=== PATIENT | male | born 1965 | race Caucasian/White ===

== ENCOUNTER 2017-03-19 10:00 | Observation (INO) | payer OTHER ==
[~2017-03-19] VITALS: Ht 180.3 cm; Wt 76.3 kg
[~2017-03-19 10:00] MED LIST: CYCLOBENZAPRINE10 MG PO; ENDOCET 5-3251 EACH PO; Flexeril PO; GABAPENTIN600 MG PO; LYRICA75 MG PO; OXYCONTIN15 MG PO; PERCOCET 5/31 TABLET; TRAZODONE HCL50 MG PO
[2017-03-19 12:51] LABS: EOSINOPHIL (%) 0.9 % (0-5); EOSINOPHIL COUNT 0.1 K/uL (0-0.3); HEMATOCRIT 38.3 % (38.0-50.0); IMMATURE GRANULOCYTE (%) 0.4 % (0.0-0.7); INSTRUMENT ABS NEUTROPHIL CT 5.9 K/uL; LYMPHOCYTE COUNT 1.8 K/uL (1.0-2.8); MCH 32.5 PG (29.0-34.0); MCHC 33.7 G/DL (30.0-36.0); MCV 96.5 FL (86-99); MEAN PLAT.VOLUME 10.7 uM^3 (9.0-12.4); MONOCYTE (%) 7.3 % (3-12); MONOCYTE COUNT 0.6 K/uL (0-0.8); NEUTROPHIL (%) 69.6 % (45-76); NEUTROPHIL COUNT 5.9 K/uL (1.8-6.4); PLATELET COUNT 256 K/uL (156-360); RBC DIS.WIDTH-CV 14.7 % (11.8-14.6); RBC DIS.WIDTH-SD 52.5 % (39-53); RED BLOOD COUNT 3.97 M/uL (4.00-5.50); WHITE BLOOD COUNT 8.5 K/uL (4.1-10.2)
[2017-03-19 13:02] LABS: CHLORIDE 94 mEq/L (99-109); POTASSIUM 4.7 mEq/L (3.7-5.4); SODIUM 137 mEq/L (136-147)
[2017-03-19 13:03] LABS: D-DIMER ELISA 1.39 mg/L FEU (< 0.57); INTER. NORMALIZED RATIO 0.9; PROTHROMBIN TIME 9.6 (9.2-11.2); PTT 24.9 (25-32)
[2017-03-19 13:04] LABS: GLUCOSE 102 mg/dL (70-99)
[2017-03-19 13:05] LABS: ANION GAP 16 MEQ/L (2-14)
[2017-03-19 13:08] LABS: GFR ESTIMATE (CALCULATED) 24 mL/min/
[2017-03-19 13:09] LABS: UREA NITROGEN (BUN) 26 mg/dL (9-23)
[2017-03-19 13:16] LABS: TROP-I INTERPRETATION NEGATIVE; TROPONIN-I < 0.01 ng/mL (0.0-0.30)
[2017-03-19] MEDS ORDERED: LYRICA75 MG PO (14:35)
[2017-03-19] MEDS ORDERED: LISINOPRIL20 MG PO (14:36)
[2017-03-19] MEDS ORDERED: OXYCODONE-APAP1 EACH PO (14:36)
[2017-03-19 19:23] LABS: CREATINE KINASE 329 IU/L (1-294); URIC ACID 8.6 mg/dL (3.1-9.2)
[2017-03-19 21:22] VITALS: BP 120/71
[2017-03-19 23:46] VITALS: BP 114/74
[2017-03-20 04:09] VITALS: BP 124/82
[2017-03-20 07:26] LABS: HEMATOCRIT 33.7 % (38.0-50.0); MCH 33.7 PG (29.0-34.0); MCHC 33.8 G/DL (30.0-36.0); MCV 99.7 FL (86-99); MEAN PLAT.VOLUME 11.1 uM^3 (9.0-12.4); PLATELET COUNT 218 K/uL (156-360); RBC DIS.WIDTH-CV 14.7 % (11.8-14.6); RBC DIS.WIDTH-SD 54.5 % (39-53); RED BLOOD COUNT 3.38 M/uL (4.00-5.50); WHITE BLOOD COUNT 7.1 K/uL (4.1-10.2)
[2017-03-20 07:51] LABS: ANION GAP 8 MEQ/L (2-14); CHLORIDE 104 MEQ/L (99-109); GLUCOSE 83 mg/dL (70-99); POTASSIUM 4.1 MEQ/L (3.7-5.4); SAMPLE HEMOLYSIS CHECK 0; SAMPLE ICTERIC CHECK 0; SAMPLE LIPEMIA CHECK 0; SODIUM 139 MEQ/L (136-147); UREA NITROGEN (BUN) 17 mg/dL (9-23)
[2017-03-20 07:52] LABS: GFR ESTIMATE (CALCULATED) > 59 mL/min/
[2017-03-20 08:12] VITALS: BP 138/92
[2017-03-20 09:19] LABS: SERUM ETHYL ALCOHOL < 10 mg/dL
[2017-03-20 09:23] LABS: TROP-I INTERPRETATION NEGATIVE; TROPONIN-I < 0.01 ng/mL (0.0-0.30)
[2017-03-20 10:46] VITALS: BP 124/92
[2017-03-20] MEDS ORDERED: VENTOLIN HFA18 GM IH (11:15)
== END 2017-03-20 12:13 | disposition home or self-care (01) ==
LOC: EME 10:00 → 5SOUTH 18:35 → EDOF 18:35 → 5SOUTH 21:08
PROVIDERS: Emergency Medicine; Hospitalist; Physician Assistant Medical
DX: N17.9 Acute kidney failure, unspecified (principal); E86.1 Hypovolemia; G89.4 Chronic pain syndrome; S22.42XS Multiple fractures of ribs, left side, sequela; F10.20 Alcohol dependence, uncomplicated; I10 Essential (primary) hypertension; F17.200 Nicotine dependence, unspecified, uncomplicated; R07.9 Chest pain, unspecified
CPT/HCPCS: 70450; 71010; 78582; 80048; 80069; 81003; 82436; 82550 91; 83935; 84133; 84300; 84484; 84550; 85025; 85027; 85379; 85610; 85730; 93005; 99281; 99285; A9539; A9540; G0378; G0480; J1644; J7030

== ENCOUNTER 2017-06-06 14:34 | Emergency (ER) | payer OTHER ==
[~2017-06-06] VITALS: Ht 180.3 cm; Wt 72.2 kg
[~2017-06-06 14:34] MED LIST changes: +LISINOPRIL20 MG PO; +OXYCODONE-APAP1 EACH PO; +VENTOLIN HFA18 GM IH
[2017-06-06 14:48] VITALS: BP 162/96
[2017-06-06] MEDS ORDERED: TRAMADOL HCL50 MG PO (16:41)
[2017-06-06] MEDS ORDERED: ZOFRAN ODT4 MG PO (16:52)
== END 2017-06-06 16:55 | disposition home or self-care (01) ==
LOC: EME 14:34
DX: S20.211A Contusion of right front wall of thorax, initial encounter (principal); W10.9XXA Fall (on) (from) unspecified stairs and steps, initial encounter; I10 Essential (primary) hypertension; F17.200 Nicotine dependence, unspecified, uncomplicated
CPT/HCPCS: 71101; 99281; 99283